=== PATIENT | female | born 1955 | race Hispanic/Latino ===

== ENCOUNTER → 2016-08-10 | Outpatient (REF) | payer BC ==
[2016-08-10 16:55] LABS: ALBUMIN 4.1 g/dL (3.4-5.0); ANION GAP 15.1 MEQ/L (3-15); CALCULATED IONIZED CALCIUM 3.9 mg/dL (3.8-4.6); TOTAL PROTEIN 7.5 g/dL (6.4-8.5)
== END ==
LOC: LAB 15:44
PROVIDERS: ATTEND Family Medicine
DX: E11.9 Type 2 diabetes mellitus without complications (principal); E78.00 Pure hypercholesterolemia, unspecified
CPT/HCPCS: 80053; 80061; 83036

== ENCOUNTER → 2016-10-11 | Outpatient (REF) ==
[~2016-10-11] MED LIST: BP MED; PRILOSEC; SIMVASTATIN
--- NOTE | 2016-10-11 18:21 | Diagnostic Imaging Report ---
INDICATION: Positive TB test. COMPARISON: 03/03/2012. FINDINGS: The lungs are well aerated. There are no infiltrates or masses. The heart is not enlarged. There is no evidence of apical infiltrate. No cavitary lesions. No hilar adenopathy. No pneumothorax or pleural effusion. IMPRESSION: Normal PA and lateral chest with no findings to suggest active TB. Dictated by: Dictated on workstation # [id number]
== END ==
LOC: RAD 14:39
PROVIDERS: ATTEND Family Medicine
DX: R76.11 Nonspecific reaction to tuberculin skin test without active tuberculosis (principal)
CPT/HCPCS: 71020

== ENCOUNTER → 2016-11-13 | Outpatient (CLI) | payer BC ==
--- NOTE | 2016-11-14 14:43 | Diagnostic Imaging Report ---
EXAMINATION: DIG MELITA BILAT SCREEN W CAD. COMPARISON: 03/31/2015 and 02/04/2013. INDICATION: Screening mammography. TECHNIQUE: Digital screening mammography was obtained with a computer-aided detection (CAD) system. FINDINGS: The breasts are almost entirely fatty. No dominant mass, suspicious microcalcifications, or architectural distortion to suggest malignancy. IMPRESSION: Stable mammogram without evidence of malignancy. Followup screening mammogram in 12 months is recommended. ACR BI-RADS Category 1: Negative. Result letter will be mailed to the patient. Note: At least 10% of breast cancer is not imaged by mammography. Dictated by: Dictated on workstation # [id number]
== END ==
LOC: RAD 13:52
PROVIDERS: ATTEND Family Medicine
DX: Z12.31 Encounter for screening mammogram for malignant neoplasm of breast (principal)

== ENCOUNTER 2016-11-29 15:18 | Emergency (ER) | payer BC ==
[~2016-11-29] VITALS: Ht 165.1 cm; Wt 78.0 kg
--- OUTSIDE RECORDS SUMMARY | 2016-11-29 15:23 | XMS REPORT | Continuity of Care Document ---
Author Author [facility] Address Unknown Phone Unavailable Allergies Medications Problems Date Dx Coded Attending Type Code Diagnosis Diagnosed By 03/03/2012 Ot 530.10 03/03/2012 Ot 786.50 08/09/2014 MARILIA MORA MD Ot V76.12 10/07/2014 YOHAN VELA, CAIT Travis Ot 250.00 10/07/2014 YOHAN VELA, CAIT Travis Ot 272.4 12/07/2014 YOHAN VELA, CAIT Travis Ot 250.00 12/07/2014 CAIT ALMANZAR MD Ot 272.4 03/30/2015 YOHAN VELA, CAIT Travis Ot 250.00 03/30/2015 CAIT ALMANZAR MD Ot 272.4 04/08/2015 CAIT ALMANZAR MD Ot V76.12 12/29/2015 YOHAN VELA, CAIT Travis Ot 250.00 DIAB GARCÍA WO COMPL, TYPE II OR UNSPEC TY 12/29/2015 CAIT ALMANZAR MD Ot 272.4 HYPERLIPIDEMIA NEC/NOS 12/29/2015 Ot 250.00 DIAB GARCÍA WO COMPL, TYPE II OR UNSPEC TY 12/29/2015 Ot 272.4 HYPERLIPIDEMIA NEC/NOS 12/29/2015 Ot 433.10 CAROTID ARTERY OCCLUSION W O CEREBRAL IN 12/29/2015 Ot 433.30 MULT BILTRAL ARTERY OCCLUSION WO CEREBRA 12/29/2015 Ot 729.89 MUSCSKEL SYMPT LIMB NEC 12/29/2015 CAIT ALMANZAR MD Ot 250.00 DIAB GARCÍA WO COMPL, TYPE II OR UNSPEC TY 12/29/2015 CAIT ALMANZAR MD Ot 272.4 HYPERLIPIDEMIA NEC/NOS 12/29/2015 CAIT ALMANZAR MD Ot V76.12 OT SCREEN MAMMO-MALIGN NEOPLASM OF SOFIA 01/26/2016 CAIT ALMANZAR MD Ot E11.9 TYPE 2 DIABETES MELLITUS WITHOUT COMPLIC 01/26/2016 CAIT ALMANZAR MD Ot E78.5 HYPERLIPIDEMIA, UNSPECIFIED 02/20/2016 CAIT ALMANZAR MD Ot E11.9 TYPE 2 DIABETES MELLITUS WITHOUT COMPLIC 02/20/2016 CAIT ALMANZAR MD Ot E78.5 HYPERLIPIDEMIA, UNSPECIFIED 03/29/2016 YOHAN VELA, CAIT Travis Ot 250.00 DIAB GARCÍA WO COMPL, TYPE II OR UNSPEC TY 03/29/2016 CAIT ALMANZAR MD Ot 272.4 HYPERLIPIDEMIA NEC/NOS 03/29/2016 Ot 250.00 DIAB GARCÍA WO COMPL, TYPE II OR UNSPEC TY 03/29/2016 Ot 272.4 HYPERLIPIDEMIA NEC/NOS 03/29/2016 Ot 433.10 CAROTID ARTERY OCCLUSION W O CEREBRAL IN 03/29/2016 Ot 433.30 MULT BILTRAL ARTERY OCCLUSION WO CEREBRA 03/29/2016 Ot 729.89 MUSCSKEL SYMPT LIMB NEC 03/29/2016 CAIT ALMANZAR MD Ot 250.00 DIAB GARCÍA WO COMPL, TYPE II OR UNSPEC TY 03/29/2016 CAIT ALMANZAR MD Ot 272.4 HYPERLIPIDEMIA NEC/NOS 03/29/2016 CAIT ALMANZAR MD Ot V76.12 OTH SCREEN MAMMO-MALIGN NEOPLASM OF SOFIA 03/29/2016 CAIT ALMANZAR MD Ot E11.9 TYPE 2 DIABETES MELLITUS WITHOUT COMPLIC 03/29/2016 CAIT ALMANZAR MD Ot E78.5 HYPERLIPIDEMIA, UNSPECIFIED 07/23/2016 CAIT ALMANZAR MD Ot 250.00 DIAB GARCÍA WO COMPL, TYPE II OR UNSPEC TY 07/23/2016 CAIT ALMANZAR MD Ot 272.4 HYPERLIPIDEMIA NEC/NOS 07/23/2016 Ot 250.00 DIAB GARCÍA WO COMPL, TYPE II OR UNSPEC TY 07/23/2016 Ot 272.4 HYPERLIPIDEMIA NEC/NOS 07/23/2016 Ot 433.10 CAROTID ARTERY OCCLUSION W O CEREBRAL IN 07/23/2016 Ot 433.30 MULT BILTRAL ARTERY OCCLUSION WO CEREBRA 07/23/2016 Ot 729.89 MUSCSKEL SYMPT LIMB NEC 07/23/2016 CAIT ALMANZAR MD Ot 250.00 DIAB GARCÍA WO COMPL, TYPE II OR UNSPEC TY 07/23/2016 CAIT ALMANZAR MD Ot 272.4 HYPERLIPIDEMIA NEC/NOS 07/23/2016 CAIT ALMANZAR MD Ot V76.12 OTH SCREEN MAMMO-MALIGN NEOPLASM OF SOFIA 07/23/2016 CAIT ALMANZAR MD Ot E11.9 TYPE 2 DIABETES MELLITUS WITHOUT COMPLIC 07/23/2016 CAIT ALMANZAR MD Ot E78.5 HYPERLIPIDEMIA, UNSPECIFIED 08/09/2016 YOHAN VELA, CAIT Travis Ot 250.00 DIAB GARCÍA WO COMPL, TYPE II OR UNSPEC TY 08/09/2016 CAIT ALMANZAR MD Ot 272.4 HYPERLIPIDEMIA NEC/NOS 08/09/2016 Ot 250.00 DIAB GARCÍA WO COMPL, TYPE II OR UNSPEC TY 08/09/2016 Ot 272.4 HYPERLIPIDEMIA NEC/NOS 08/09/2016 Ot 433.10 CAROTID ARTERY OCCLUSION W O CEREBRAL IN 08/09/2016 Ot 433.30 MULT BILTRAL ARTERY OCCLUSION WO CEREBRA 08/09/2016 Ot 729.89 MUSCSKEL SYMPT LIMB NEC 08/09/2016 YOHAN VELA, CAIT Travis Ot 250.00 DIAB GARCÍA WO COMPL, TYPE II OR UNSPEC TY 08/09/2016 CAIT ALMANZAR MD Ot 272.4 HYPERLIPIDEMIA NEC/NOS 08/09/2016 CAIT ALMANZAR MD Ot V76.12 OTH SCREEN MAMMO-MALIGN NEOPLASM OF SOFIA 08/09/2016 CAIT ALMANZAR MD Ot E11.9 TYPE 2 DIABETES MELLITUS WITHOUT COMPLIC 08/09/2016 CAIT ALMANZAR MD Ot E78.5 HYPERLIPIDEMIA, UNSPECIFIED 08/14/2016 CAIT ALMANZAR MD Ot E11.9 TYPE 2 DIABETES MELLITUS WITHOUT COMPLIC 08/14/2016 CAIT ALMANZAR MD Ot E78.00 PURE HYPERCHOLESTEROLEMIA, UNSPECIFIED 08/14/2016 CAIT ALMANZAR MD Ot E11.9 TYPE 2 DIABETES MELLITUS WITHOUT COMPLIC 08/14/2016 CAIT ALMANZAR MD Ot E78.00 PURE HYPERCHOLESTEROLEMIA, UNSPECIFIED 08/21/2016 CAIT ALMANZAR MD Ot E11.9 TYPE 2 DIABETES MELLITUS WITHOUT COMPLIC 08/21/2016 CAIT ALMANZAR MD Ot E78.00 PURE HYPERCHOLESTEROLEMIA, UNSPECIFIED 09/19/2016 CAIT ALMANZAR MD, Ot E11.9 TYPE 2 DIABETES MELLITUS WITHOUT COMPLIC 09/19/2016 CAIT ALMANZAR MD Ot E78.00 PURE HYPERCHOLESTEROLEMIA, UNSPECIFIED 10/16/2016 DELPHINE VELA, TY Mckinnon Ot R76.11 NONSPECIFIC REACTION TO SKIN TEST W/O AC 11/13/2016 CAIT ALMANZAR MD Ot 250.00 DIAB GARCÍA WO COMPL, TYPE II OR UNSPEC TY 11/13/2016 CAIT ALMANZAR MD Ot 272.4 HYPERLIPIDEMIA NEC/NOS 11/13/2016 Ot 250.00 DIAB GARCÍA WO COMPL, TYPE II OR UNSPEC TY 11/13/2016 Ot 272.4 HYPERLIPIDEMIA NEC/NOS 11/13/2016 Ot 433.10 CAROTID ARTERY OCCLUSION W O CEREBRAL IN 11/13/2016 Ot 433.30 MULT BILTRAL ARTERY OCCLUSION WO CEREBRA 11/13/2016 Ot 729.89 MUSCSKEL SYMPT LIMB NEC 11/13/2016 CAIT ALMANZAR MD Ot 250.00 DIAB GARCÍA WO COMPL, TYPE II OR UNSPEC TY 11/13/2016 CAIT ALMANZAR MD Ot 272.4 HYPERLIPIDEMIA NEC/NOS 11/13/2016 CAIT ALMANZAR MD Ot V76.12 OTH SCREEN MAMMO-MALIGN NEOPLASM OF SOFIA 11/13/2016 CAIT ALMANZAR MD Ot E11.9 TYPE 2 DIABETES MELLITUS WITHOUT COMPLIC 11/13/2016 CAIT ALMNAZAR MD Ot E78.5 HYPERLIPIDEMIA, UNSPECIFIED 11/13/2016 CAIT ALMANZAR MD, Ot E11.9 TYPE 2 DIABETES MELLITUS WITHOUT COMPLIC 11/13/2016 CAIT ALMANZAR MD, Ot E78.00 PURE HYPERCHOLESTEROLEMIA, UNSPECIFIED 11/15/2016 CAIT ALMANZAR MD, Ot Z12.31 ENCNTR SCREEN MAMMOGRAM FOR MALIGNANT NE 11/24/2016 CAIT ALMANZAR MD, Ot Z12.31 ENCNTR SCREEN MAMMOGRAM FOR MALIGNANT NE Procedures Results Test Result Range HEMOGLOBIN A1C* - 08/10/16 15:45 HEMOGLOBIN A1C* 6.2 4.0-6.0 Comprehensive metabolic panel - 08/10/16 15:45 Sodium measurement 97 70-110 CARBON DIOXIDE 27 22-29 Serum or plasma anion gap 15.1 3-15 BLOOD UREA NITROGEN 16 7-18 CREATININE SERUM 0.84 0.6-1.2 Brucella species antibody panel (IgG, IgM) 19 10-20 Estimated glomerular filtration rate (GFR) 84.0 Estimated glomerular filtration rate (GFR) non- 69.4 OSMOLALITY,CALCULATED 281 280-300 CALCIUM 9.2 8.8-10.8 Calculated ionized calcium measurement 3.9 3.8-4.6 BILIRUBIN,TOTAL 0.9 0.1-1.0 Serum or plasma alkaline phosphatase measurement 130 38-126 ASPARTATE AMINO TRANSFERASE 31 15-37 ALANINE AMINOTRANSFERASE 37 30-65 Serum or plasma total protein measurement 7.5 6.4-8.5 Serum or plasma albumin measurement 4.1 3.4-5.0 Serum or plasma albumin/globulin mass ratio 1.205 1.1-1.8 LIPID PANEL - 08/10/16 15:45 Cholesterol 129 50-200 HDL Cholesterol 71 40-60 Triglycerides 88 10-150 LDL CHOLESTEROL 40 50-130 VLDL Cholesterol, calc 18 4.00-40.00 Cholesterol.total/Cholesterol.in HDL 1.8 0.0-5.0 Encounters ACCT No. Visit Date/Time Discharge Status Pt. Type Provider Facility Loc./Unit Complaint [id number] 03/31/2015 14:28:00 2014 23:59:59 CLS Outpatient YOHAN VELA, [facility] RAD SCREENING BASELINE [id number] 03/18/2015 16:13:00 2014 23:59:59 CLS Outpatient YOHAN VELA, [facility] LAB LAB DROP OFF [id number] 09/28/2014 16:13:00 2014 23:59:[address] [facility] [id number] 08/09/2014 17:00:00 2014 23:59:59 CLS Outpatient YOHAN VELA, [facility] LAB DROP OFF FROM DR OFFICE [id number] 02/04/2013 14:25:00 2012 23:59:59 CLS Outpatient MORGAN VELA, [facility] RAD [id number] 11/13/2016 13:52:00 ACT Outpatient YOHAN VELA, [facility] RAD Z12.31 SCREENING [id number] 10/11/2016 14:39:00 ACT Outpatient DELPHINE VELA , [facility] RAD RAD [id number] 08/10/2016 15:44:00 ACT Outpatient YOHAN VELA, [facility] LAB DROP OFF DR ALMANZAR [id number] 01/20/2016 17:44:00 ACT Outpatient YOHAN VELA, [facility] LAB DROP OFF [id number] 09/08/2014 09:40:00 Document Registration [id number] 03/03/2012 12:53:00 Document Registration
[2016-11-29] MEDS ORDERED: LOVA40TA2 PO (15:28)
[2016-11-29] MEDS ORDERED: MNTL10T PO (15:28)
[2016-11-29] MEDS ORDERED: FLX20C PO (15:28)
--- OUTSIDE RECORDS SUMMARY | 2016-11-29 15:31 | XMS REPORT | Continuity of Care Document ---
Author Author [facility] Address Unknown Phone Unavailable Allergies Medications Problems Date Dx Coded Attending Type Code Diagnosis Diagnosed By 03/03/2012 Ot 530.10 03/03/2012 Ot 786.50 08/09/2014 MARILIA MORA MD Ot V76.12 10/07/2014 YOHAN VELA, CAIT Travis Ot 250.00 10/07/2014 YOHAN VELA, CAIT Travis Ot 272.4 12/07/2014 YOHAN VELA, CAIT Travis Ot 250.00 12/07/2014 CAIT ALMAZNAR MD Ot 272.4 03/30/2015 YOHAN VELA, CAIT [...] 729.89 MUSCSKEL SYMPT LIMB NEC 03/29/2016 CAIT ALMANZRA MD Ot 250.00 DIAB GARCÍA WO COMPL, [...] DIABETES MELLITUS WITHOUT COMPLIC 11/13/2016 CAIT ALMANZAR MD Ot E78.5 HYPERLIPIDEMIA, UNSPECIFIED 11/13/2016 CAIT ALMANZAR MD, Ot E11.9 TYPE 2 DIABETES MELLITUS WITHOUT COMPLIC 11/13/2016 CIAT ALMANZAR MD, Ot E78.00 PURE HYPERCHOLESTEROLEMIA, UNSPECIFIED [...] Status Pt. Type Provider Facility Loc./Unit Complaint [id number] 03/31/2015 14:28:00 2014 23:59:59 CLS Outpatient YOHAN VELA, [facility] RAD SCREENING BASELINE [id number] 03/18/2015 16:13:00 2014 23:59:59 CLS Outpatient YOHAN VELA, [facility] LAB LAB DROP OFF [id number] 09/28/2014 16:13:00 2014 23:59:59 CLS Outpatient [facility] [id number] 08/09/2014 17:00:00 2014 23:59:59 CLS Outpatient YOHAN VELA, [facility] LAB DROP OFF FROM DR CARSON [id number] 02/04/2013 14:25:00 2012 23:59:59 CLS Outpatient MORGAN VELA, [facility] RAD [id number] 11/29/2016 15:18:00 [facility] ED [id number] 11/13/2016 13:52:00 ACT Outpatient YOHAN VELA, [facility] RAD Z12.31 SCREENING [id number] 10/11/2016 14:39:00 ACT Outpatient DELPHINE VELA , [facility] RAD RAD [id number] 08/10/2016 15:44:00 ACT Outpatient YOHAN VELA, [facility] LAB DROP OFF DR ALMANZAR [id number] 01/20/2016 17:44:00 ACT Outpatient YOHAN VELA, [facility] LAB DROP OFF [id number] 09/08/2014 09:40:00 Document Registration [id number] 03/03/2012 12:53:00 Document Registration
--- NOTE | 2016-11-29 17:01 | Diagnostic Imaging Report ---
INDICATION: Right leg pain. AP and lateral views of the right tibia and fibula performed. FINDINGS: No fracture or acute bony abnormality is seen. IMPRESSION: Negative right tibia and fibula. Dictated by: Dictated on workstation # [id number]
[2016-11-29 17:12] VITALS: BP 150/90
== END 2016-11-29 17:13 | disposition home or self-care (01) ==
LOC: ED 15:27
DX: S80.11XA Contusion of right lower leg, initial encounter (principal); W31.89XA Contact with other specified machinery, initial encounter; Y93.F2 Activity, caregiving, lifting; Y92.129 Unspecified place in nursing home as the place of occurrence of the external cause; Y99.0 Civilian activity done for income or pay
CPT/HCPCS: 73590; 99282